=== PATIENT | male | born 1960 | race Caucasian/White ===

== ENCOUNTER 2025-07-15 13:02 | Emergency (ER) | payer OTHER, SELFPAY ==
[2025-07-15 13:16] VITALS: BP 165/93
[2025-07-15 15:13] VITALS: BP 160/93; BMI 28.9
--- NOTE | 2025-07-15 15:23 | ED.GENMED ---
History of Present Illness
<YORDY Carrera - Last Filed: 07/15/25 23:57>
General
Chief Complaint: Musculo-Skeletal Complaint
Source: patient
Exam Limitations: none
Time Seen by Provider: 07/15/25 15:13
History of Present Illness
History of Present Illness:
Patient is a 64-year-old male who presents to the ER for evaluation. Patient reports for the past several months he has had swelling and pain to his left index finger. (He is right-hand dominant). he was seen by his family doctor, nurse
practitioner who thought it might be arthritis. Two separate times throughout the swelling he stuck a pin in it and' popped it.' He does report that it drained pus out of it. He was seen urgent care today for URI symptoms diagnosed bacterial
pneumonia however also had this finger swelling evaluated. He had an x-ray and was called by urgent care to come directly to the ER for possible bone infection. reports the finger was becoming a blackish color and his primary care physician
put him on Keflex week ago which did seem to improve symptoms.
Patient denies any other joint pain rash fever chills no prior history of autoimmune joint disease
Past History
<YORDY Carrera - Last Filed: 07/15/25 23:57>
Past History
ED Past Medical History: GERD
ED Past Surgical History: None
Social History
Tobacco: Non-smoker
Alcohol: Occasional
Personal:
Living: with family
Employment: Employed
Family History
Family History: Negative Early CAD, CAD or Sudden
Phy Exam
<YORDY Carrera - Last Filed: 07/15/25 23:57>
General Physical Exam
General Presentation: no apparent distress
General age: appears stated age
General Skin: warm and dry
General Habitus: normal
General Mental: alert
General Hydration: appears well hydrated
Neurological Exam
Neurological Exam: alert and oriented x3
Musculoskeletal Exam
Musculoskeletal Exam: other (LUE with strong pulses mild swelling to left index finger mild erythema able to flex /extend /good ROM no lymphangitis)
Skin Exam
Skin Exam: normal color and warm/dry
Psychiatric Exam
Psychiatric Exam: normal mood/affect
Course
<YORDY Carrera - Last Filed: 07/15/25 23:57>
Orders/Labs/Results
Orders:
Orders
07/15/25 16:02
IV Insert/Care/Rem.- Treatment PRN
07/15/25 16:13
CRP [C-Reactive Protein] Urgent
Complete Blood Count/With Diff Urgent
Comprehensive Metabolic Panel Urgent
Lactic Acid Urgent
Sed Rate [Erythrocyte Sed Rate] Urgent
07/15/25 17:43
Amoxicillin 875 mg/Clav 125 mg [Augmentin 875 mg/125 mg] 1 tablet PO NOW STA
Abnormal Lab Results
07/15/25
16:13
MPV 10.5 H fL
(7.4-10.4)
Absolute Monos (auto) 1.0 H 10^3/uL
(0.1-0.6)
Monocytes % 11.9 H %
(1.7-9.3)
Carbon Dioxide 31 H mmol/L
(22-30)
C-Reactive Protein 29.80 H mg/L
(0.0-10.00)
07/15/25 16:13
07/15/25 16:13
Vital Signs
Initial and Last Documented VS:
Initial Vital Signs
Temp Pulse Resp BP Pulse Ox
98.3 F 70 20 165/93 96
07/15/25 13:16 07/15/25 13:16 07/15/25 13:16 07/15/25 13:16 07/15/25 13:16
Last Documented Vital Signs
Temp Pulse Resp BP Pulse Ox
98.3 F 53 18 188/91 99
07/15/25 15:14 07/15/25 17:48 07/15/25 15:13 07/15/25 17:48 07/15/25 17:48
Insurance Customer Service Specialist consulted with Physician
Insurance Customer Service Specialist consulted with physician?: Yes
Name of Physician Consulted: Марина
<Boris Parish, DO - Last Filed: 07/15/25 17:46>
Orders/Labs/Results
Orders:
Orders
07/15/25 16:02
IV Insert/Care/Rem.- Treatment PRN
07/15/25 16:13
CRP [C-Reactive Protein] Urgent
Complete Blood Count/With Diff Urgent
Comprehensive Metabolic Panel Urgent
Lactic Acid Urgent
Sed Rate [Erythrocyte Sed Rate] Urgent
07/15/25 17:43
Amoxicillin 875 mg/Clav 125 mg [Augmentin 875 mg/125 mg] 1 tablet PO NOW STA
Abnormal Lab Results
07/15/25
16:13
MPV 10.5 H fL
(7.4-10.4)
Absolute Monos (auto) 1.0 H 10^3/uL
(0.1-0.6)
Monocytes % 11.9 H %
(1.7-9.3)
Carbon Dioxide 31 H mmol/L
(22-30)
C-Reactive Protein 29.80 H mg/L
(0.0-10.00)
07/15/25 16:13
07/15/25 16:13
Vital Signs
Initial and Last Documented VS:
Initial Vital Signs
Temp Pulse Resp BP Pulse Ox
98.3 F 70 20 165/93 96
07/15/25 13:16 07/15/25 13:16 07/15/25 13:16 07/15/25 13:16 07/15/25 13:16
Last Documented Vital Signs
Temp Pulse Resp BP Pulse Ox
98.3 F 53 18 188/91 99
07/15/25 15:14 07/15/25 17:48 07/15/25 15:13 07/15/25 17:48 07/15/25 17:48
<YORDY Carrera - Last Filed: 07/15/25 23:57>
MDM/Problems Addressed
Differential Diagnosis Includes:
Not limited to infection, less likely osteomyelitis gout
MDM/Problems Addressed:
As documented patient is a 64-year-old male who presents with left index finger swelling for the past several months. He has tried to drain this and has gotten some pus out on his own. He denies any fever or chills. Patient was seen by urgent
care earlier today for cough cold URI symptoms and also had this evaluated patient .patient had an x-ray and official report suggested loss of bone density with considerations including osteomyelitis erosive change for inflammatory arthropathy/gout.
Patient was sent here to the ER for evaluation .on Exam patient has mild swelling to the left index finger at the DIP joint very minimally red good range of motion. He has no acute distress and afebrile with a normal white count.
Patient has had symptoms for the past several months, and is afebrile with a normal white count less suspicious for osteomyelitis. Case reviewed with ED physician who evaluated patient. Case reviewed with orthopedic hand specialist on-call
Ritting, he does recommend Augmentin with f/u as outpt next week .
Pt was given doxycycline for' bacterial pneumonia' as per at urgent care prior to arrival however I did review this chest x-ray which was done at 1036 this morning and was negative for pneumonia. I instructed patient to hold off on starting
doxycycline to start Augmentin as recommended by hand specialist
<YORDY Carrera - Last Filed: 07/15/25 23:57>
*Pulse Oximetry
SaO2: 98
Oxygen Mode of Delivery: Room air
Patient hypoxic: no
*Critical Care Note
Total Time (30-74mins, 75-104mins- exclusive of procedures): Not Applicable
Data Reviewed
Review of Other/Old Records Reveals: Other (Outpatient imaging from urgent care reviewed)
<YORDY Carrera - Last Filed: 07/15/25 23:57>
Patient Management
Discussion with other providers: Manager Fire (ortho hand Dr Hernandez )
ED Attending Note
<YORDY Carrera - Last Filed: 07/15/25 23:57>
-
Portions of this chart may have been created with voice recognition software.� Occasional wrong word or��sound alike� substitutions may have occurred due to the inherent limitations of voice recognition software.
<Boris Parish DO - Last Filed: 07/15/25 17:46>
ED Attending Note
Patient seen and examined by attending physician: Yes
ED Attending Note:
I reviewed and agree with history treatment plan by Jolene Glez. My exam revealed 64-year-old male no acute distress mild swelling at distal phalanx left index finger. Doubt osteomyelitis, possible mild cellulitis. Patient will be placed on
Augmentin and follow-up with Dr. Hernandez.
Discharge Plan
Departure
Patient Disposition: Home (Routine Discharge)
Date of Disposition: 07/15/25
Time of Disposition: 17:44
Patient with high blood pressure during this ER visit?: Yes
Condition: Fair
Covid-19: Not Applicable
Discharge Problem:
Cellulitis, Finger infection
Instructions: Cellulitis (skin infection) in adults - ED (DC)
Prescriptions:
New
amoxicillin-pot clavulanate 875-125 mg tablet
1 tab PO BID Qty: 20 0RF
No Action
levothyroxine [Synthroid] 50 MCG tablet
50 mcg PO DAILY
levofloxacin 750 mg tablet
750 mg PO DAILY 7 Days Qty: 7 0RF
Referrals:
Dajuan Mendes MD [Active, Orthopedics]
Gerson Hernandez MD [Active, Orthopedics]
UNKNOWN - PT NOT,INTERVIEWE [Family Provider]
Activity Restrictions/Additional Instructions:
As discussed start Augmentin twice daily for the next 10 days. Please follow-up with hand surgeon as soon as possible .
call Friday morning to make an appointment. Return if any worsening of symptoms of increased pain swelling redness fever chills
Interventions
Interventions:
*Risk Screen - Suicide Last Done: 07/15/25 13:16
*General Assessment Last Done: 07/15/25 13:16
*Neglect/Abuse Screening Last Done: 07/15/25 13:16
*Nursing Disposition Last Done: 07/15/25 17:53
ED-Musculoskeletal Assessment Last Done: 07/15/25 14:44
Discharge Date and Time
Discharge Date/Time: 07/15/25 17:54
Print Language: TAJIK
[2025-07-15 16:41] LABS: Hematocrit 47.9 % (39.0-52.0); Hemoglobin 16.6 g/dL (13.0-18.0); Mean Corp Hgb Conc. 34.7 g/dL (33.0-37.0); Mean Corpuscular Volume 87.4 fL (80.0-94.0); Nucleated Red Blood Cells % 0 % (-); Platelet Count 187 10^3/uL (130-400); Red Cell Dist. Width 12.5 % (11.5-14.5)
[2025-07-15 16:55] LABS: ALT (SGPT) 25 U/L (0-50); AST (SGOT) 26 U/L (17-59); Albumin 4.5 g/dl (3.5-5.0); Alkaline Phosphatase 45 U/L (38-126); Blood Urea Nitrogen 17 mg/dl (9-20); Calcium 10.2 mg/dl (8.4-10.2); Carbon Dioxide 31 mmol/L (22-30); Chloride 102 mmol/L (98-107); Estimated Creatinine Clearance 72 ml/min; Glucose 79 mg/dl (70-99); Potassium 4.6 mmol/L (3.5-5.1); Sodium 138 mmol/L (135-145); Total Protein 7.5 g/dl (6.3-8.2); eGFR > 60.00
[2025-07-15 16:59] LABS: C-Reactive Protein 29.80 mg/L (0.0-10.00)
[2025-07-15 17:48] VITALS: BP 188/91
[2025-07-15] MEDS: AUGMENTIN 875 MG/125 MG 1 TABLET PO (17:50)
== END 2025-07-15 17:54 | disposition home or self-care (01) ==
LOC: EMR 13:02
PROVIDERS: Nurse Practitioner; EMERGENCY PHYSICIAN Emergency Medicine
DX: L03.012 Cellulitis of left finger (principal); K21.9 Gastro-esophageal reflux disease without esophagitis
CPT/HCPCS: 99283; 80053; 83605; 85025; 85652; 86140

== ENCOUNTER 2025-07-27 07:14 | Inpatient (IN) | payer OTHER, SELFPAY ==
--- NOTE | 2025-07-26 12:01 | CM ---
Cm spoke with patient via lives telephone. Patient is aware that he may need home IV antibiotics. He stated that he is willing to learn. Patient further stated that he is agreeable to [facility]. CM to sent referral via [facility] for a preliminary
referral.
PLAN: [facility] for home IV antibiotics.
[2025-07-27] VITALS (16 sets, daily range): BP systolic 100–156; BP diastolic 58–96; BMI 29.7
[2025-07-27] MEDS: CELEBREX 200 MG PO (07:50)
[2025-07-27] MEDS: TYLENOL 1000 MG PO (07:53)
[2025-07-27] MEDS: NORMOSOL-R/PLASMALYTE-A 1000 IV (07:55)
[2025-07-27 11:02] LABS: Blood Urea Nitrogen 15 mg/dl (9-20); Calcium 9.0 mg/dl (8.4-10.2); Carbon Dioxide 25 mmol/L (22-30); Chloride 108 mmol/L (98-107); Estimated Creatinine Clearance 90 ml/min; Glucose 97 mg/dl (70-99); Potassium 4.7 mmol/L (3.5-5.1); Sodium 137 mmol/L (135-145); eGFR > 60.00
--- NOTE | 2025-07-27 12:19 | CON.ID ---
Consultation
-
Date/Time Consultation Requested: 07/27/2025 0817
Date/Time Consultation Performed: 07/27/2025 1221
Requesting Provider: Dr. Hernandez
Performing Provider: Dr. Mckeon
Reason for Consultation: Left index finger osteomyelitis
Chief Complaint / Past History
History of Present Illness
Clifford Mensah is a 64-year-old man being evaluated at the request of Dr. Hernandez regarding left index finger osteomyelitis. History is obtained from chart review, along with patient interview. Additional history was obtained from patient's
who is at the bedside.
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
He was in his usual state of health until the beginning of March when he had some left distal index finger swelling. According to a timeline provided to me, on April 08 he saw a nurse practitioner and was diagnosed with arthritis. On or around April 24
an area of swelling developed which he reportedly 'popped' with recovery of purulence. An additional area of swelling developed in sometime in May, and he reports he again 'popped' the area, again with recovery of purulence. Later, he developed
atrial fibrillation, and developed cold-like symptoms with congestion. He was placed on antibiotics around July 11, and it is noted that he had 'darkening of his finger'. On July 15 he went to an urgent care where x-rays revealed an infection
in both his lung and finger. He was given cough medicine and started on doxycycline. He also was started on Augmentin for 10 days, but he developed a rash to the Augmentin and he stopped it on day 7. On 07/[address] Hernandez and was ordered an
MRI which was performed on 07/21, which revealed findings consistent with osteomyelitis. Today, he was taken to the OR for debridement and cultures. He reports he has been off of antibiotics (Augmentin) for the past 4 days.
He denies any trauma to the finger. He is not a fisherman. He has no pets. He does not have any aquariums and has no significant water exposure. He works as a welder production line combination.
Past History
Additional Past Medical History:
Hypothyroidism
Hx prostate CA
Hx thymoma
Additional Past Surgical History:
Prostatectomy
thymectomy
Allergy History:
amoxicillin (From Augmentin) Allergy (Verified 07/26/25 09:50)
Hives
latex Allergy (Verified 07/26/25 09:50)
Blistering
Medications Reviewed: Yes
Current Antibiotics:
None
Social History
Tobacco: Non-Smoker
Alcohol: Occasional
Drug: None
Personal:
Living: With Family
Employment: Employed
Family History
Family History: Not Pertinent
Review of Systems
Vital Signs
Temp Pulse Resp BP Pulse Ox
97.3 F 60 12 143/79 100
07/27/25 09:41 07/27/25 12:15 07/27/25 12:15 07/27/25 12:00 07/27/25 12:15
Physical Exam
Physical Exam
Constitutional: No Acute Distress, Comfortable and Non-toxic
Eyes: No Conjunctival Hemorrhage and Sclera Anicteric
Oral: No Thrush and No Ulcers
Cardiovascular: Regular Rate and S1/S2; Negative S3/S4
Pulmonary: Clear; Negative Wheezes, Rales or Rhonchi
Gastrointestinal: Soft, Non Tender, Non Distended and Normal Bowel Sounds
Wound: Other (left index finger dressed.)
Neurological: Awake and Alert
Psychological: Calm
Lab / Diagnostic Study Results
07/27/25 09:31
Microbiology Results
Micro:
07/27/25 08:47 Tissue Culture - Pending
Finger - Left Gram Stain - Preliminary
07/27/25 08:47 Wound Culture - Pending
Finger - Left Gram Stain - Preliminary
07/27/25 08:47 Anaerobic Culture - Pending
Finger - Left
Imaging:
07/21/2025 MRI left hand with and without contrast: there is extensive soft tissue edema and enhancement throughout the distal second digit consistent with cellulitis. There are small foci of susceptibility present within the distal second digit
soft tissues, at the distal volar tip and at the dorsal skin surface at the level of the DIP which may reflect small foreign bodies. No drainable soft tissue fluid collections or abscesses.
Under the second digit soft tissue changes there is marrow edema with confluent T1 hypointense marrow replacement involving the second distal phalanx and distal aspect of the second proximal phalanx. Large effusion of the second distal
interphalangeal joint consistent with septic arthritis. Please see full dictation for additional detail.
Assessment / Plan
Left hand second digit osteomyelitis of the distal and middle phalanges.
- S/p debridement, biopsy and culture
Hypothyroidism
Hx prostate CA
Hx thymoma
Recommendations:
Patient is status post debridement of the left second digit. Samples for pathology and culture have been sent.
Will start empiric antibiotics with ertapenem. PICC line has been ordered.
Await further culture data to guide subsequent antimicrobial selection and potential de-escalation.
Check ESR and CRP in AM.
Local care to the area.
[2025-07-27] MEDS: NSS 1000 IV ×2 (13:43→22:25)
[2025-07-27] MEDS: COLACE PO (13:43)
[2025-07-27] MEDS: INVANZ 60 MG IV (17:00)
[2025-07-27] MEDS: ROXICODONE 5 MG PO (17:36)
[2025-07-27] MEDS: COLACE 100 MG PO (19:57)
[2025-07-28 04:07] VITALS: BP 141/74
[2025-07-28] MEDS: SYNTHROID 75 MCG PO (06:15)
[2025-07-28] MEDS: NSS 1000 IV (06:15)
[2025-07-28 06:46] LABS: C-Reactive Protein 11.20 mg/L (0.0-10.00)
[2025-07-28 07:40] VITALS: BP 156/88
--- NOTE | 2025-07-28 07:45 | W.PN.ORTHO ---
Today's Communication / Plan
-
Patient's left index finger has no pain and neurovascularly appears intact with splint in place. He is currently receiving IV fluids which I will discontinue. Presently he is receiving Ertapenem via his PICC line. Cultures obviously still are
pending. He and his are chomping at the bit to get out of here and go home. Orthopedically the finger appears stable today. Mr. Mensah and his relay they have plans to go to [facility] next week so they are hoping to get home today. I
understand that they would like to try to get out of the hospital as soon as possible but it is important that infectious disease has culture results as to treat his finger infection appropriately
Assessment
.
Distal Motor Intact: Yes
Dressing:
Clean, dry and intact.
Plan
.
Surgery / Date: L index finger I & D 07/27 Ritting
DVT Prophylaxis: Aspirin
Activity:
Out of bed.
PT/OT
Discharge Plan: Home
Subjective
.
.:
Patient resting comfortably.
Vital Signs and Labs
.
Vital Signs and Labs:
Lab Results
07/27/25 09:31
Temp Pulse Resp BP Pulse Ox
97.1 F 56 15 141/74 97
07/28/25 04:07 07/28/25 04:07 07/28/25 04:07 07/28/25 04:07 07/28/25 04:07
--- NOTE | 2025-07-28 08:01 | CM ---
CM reviewed medical records. Plan for IV antibiotics. CM sent updated information to [facility].
PLAN: Home with IV antibiotics.
[2025-07-28] MEDS: COLACE 100 MG PO ×2 (09:14→19:51)
[2025-07-28] MEDS: ASPIRIN 325 MG PO (09:14)
--- NOTE | 2025-07-28 10:26 | CM ---
Addendum entered by Johanne Carrera RN 07/28/25 15:12:
CM was updated by Sherice at [facility] that they are able to accept patient. They are requesting documentation from physician stating that patient's dressing changes can occur immediately before his departure from the [place] and on
return from [facility]. Dr. Mckeon will provide script to assist.
CM updated patient and . was grateful and appeared happy that issue was resolved. She stated that she would be agreeable to the patient staying tomorrow for his dose and then [facility] will service patient on 07/30.
CM sent referral information to Sherice at [facility] who is currently awaiting insurance verification and scheduling. CM will continue to follow as needed.
Addendum entered by Johanne Carrera RN 07/28/25 13:27:
CM spoke with patient and in room. CM updated that [facility] will have to evaluate patient as a HIGH RISK case as patient plans to travel internationally. CM spoke with PHIT, Sherice admission RN, who stated that they are not comfortable with
patient's travel overseas, but will escalate it to management for a final decision.
Patient's became increasingly update stating that she was going to 'kill' the patient and she said she was going to go home and shoot herself. CM provide deescalation techniques and attempted to redirect the conversation.
Patient stated that he would cancel his trip if needed. CM will await call back from [facility] regarding acceptance of care.
Addendum entered by Johanne Carrera RN 07/28/25 10:36:
Patient and did advised this CM that they plan to sign out AMA on Friday if they are not discharged. feels that patient should be discharged today. CM explained at length regarding discharge planning process involved with IV antibiotics.
Patient's was agitated and was frustrated that she was not told about this process prior. further stated that Dr. Hernandez advised they that patient would be discharged today. CM reinforced barriers to discharge.
had further concerns about insurance coverage or IV antibiotics. She stated that she anticipated the IV antibiotics would not be covered and she wants this CM to contact [facility] about coverage. CM advised that when this CM has the
prescription then the patient obligation would be clarified by [facility].
Original Note:
CM met with patient and in room. Patient's has mulitple complaints about the discharge planning process including what she believed to be the lack of information and inconsistent messaging from team. Patient's further was upset that
she was unable to stay with patient in PACU while they waited for a room. stated that she had to wait 5 hours in the waiting room and was not able to stay with . CM escalated patient's concerns to Cullen Loo and Rut Ward.
Patient's stated that they plan to leave for [facility] on 08/05 and they do not plan to cancel their trip. CM advised that medication will need to be brought with them and further they will not have nursing support while in [facility]. CM further
advised that if there are complications with the PICC line then he would have to present to an Emergency Room in [facility] for care. Patient stated he understood.
ANA spoke with Richelle at [facility]. Richelle will updated the nursing team with plan for patient to travel, but patient may miss a lab draw and dressing change. Richelle will get back to me regarding nursing acceptance for patient to travel.
ANA was further updated by Dr. Mckeon with his plan for IV antibiotics and script will be forthcoming.
--- NOTE | 2025-07-28 10:44 | W.PN.ID1 ---
Date of Service
Date of Service: July 28, 2025
Today's Communication
Continue with ertapenem.
Assessment / Plan
Left hand second digit osteomyelitis of the distal and middle phalanges.
- S/p debridement, biopsy and culture
Hypothyroidism
Hx prostate CA
Hx thymoma
Recommendations:
Patient is status post debridement of the left second digit.
Cultures pending. Reviewed personally with micro department earlier today. No growth to date on either plates or thio. Cultures will be finalized either tomorrow or the next day. Information reviewed with patient and .
Based upon prior antibiotic coverage, and anticipating potentially negative cultures because of prior antibiotic use, have initiated ertapenem to cover staph and strep species.
Use of empiric antibiotics in the context of negative cultures reviewed in detail with patient and .
Continue empiric ertapenem for now which can be adjusted should culture results turn positive, although explained that if there is a change that is required, it may take several days especially if necessary over a weekend.
In anticipation of discharge on ertapenem, I have completed an IV antibiotic sheet to be given to case management and a home infusion company. I have reviewed potential side effects of antibiotic therapy (ertapenem) with the patient and .
Additionally, I have learned that the patient and plan on travel to [facility] on 08/05/2025. I have discussed risks of traveling with a PICC line and antibiotics with them. They understand that the safest thing would be to not go on this trip, but
risks of travel with infection and PICC line have been reviewed. These include blood clot, line infection, potential sepsis, or even . They understand these risks and accept them.
ESR and CRP reviewed, and appear only minimally elevated which is encouraging.
Continue with local care to the area.
Local care to the area.
Chief Complaint
-: Other (Left index finger osteomyelitis)
Subjective / Review of Systems
Review of Systems: No Fever and No Chills
Vital Signs / Physical Exam
Vital Signs
Vital Signs
Temp Pulse Resp BP Pulse Ox
97.9 F 62 16 156/88 98
07/28/25 07:40 07/28/25 07:40 07/28/25 07:40 07/28/25 07:40 07/28/25 07:40
Physical Exam
Constitutional: No Acute Distress, Comfortable and Non-toxic
Eyes: Sclera Anicteric
Cardiovascular: S1/S2; Negative S3/S4
Pulmonary: Non Labored
Gastrointestinal: Non Distended
Musculoskeletal: Other (Left index finger wrapped. No erythema extending up hand. No strikethrough on dressing.)
Neurological: Awake and Alert
Lines: PICC (Right upper extremity; exit site without erythema or tenderness.)
Objective Data
Lab Data
Lab Results
07/27/25 09:31
ESR 12 mm/hour (0-20) 07/28/25 05:33
Estimated Creat Clear 90 ml/min 07/27/25 09:31
C-Reactive Protein 11.20 mg/L (0.0-10.00) H 07/28/25 05:33
Most recent labs reviewed.
Micro Results:
07/27/25 08:47 Tissue Culture - Preliminary
Finger - Left No Growth After 18-24 Hours
Gram Stain - Preliminary
07/27/25 08:47 Anaerobic Culture - Preliminary
Finger - Left Culture pending. Anaerobic cultures are examined after 3
days incubation. Additional information to follow.
07/27/25 08:47 Wound Culture - Preliminary
Finger - Left No growth
Gram Stain - Preliminary
Imaging:
07/21/2025 MRI left hand with and without contrast: there is extensive soft tissue edema and enhancement throughout the distal second digit consistent with cellulitis. There are small foci of susceptibility present within the distal second digit
soft tissues, at the distal volar tip and at the dorsal skin surface at the level of the DIP which may reflect small foreign bodies. No drainable soft tissue fluid collections or abscesses.
Under the second digit soft tissue changes there is marrow edema with confluent T1 hypointense marrow replacement involving the second distal phalanx and distal aspect of the second proximal phalanx. Large effusion of the second distal
interphalangeal joint consistent with septic arthritis. Please see full dictation for additional detail.
Care Review
Plan reviewed with: Physician (Ortho) and Other (Case Management)
.

Total time spent today was 66 minutes, which includes preparation for the visit, including review of pre-visit forms and results, patient interview and examination, reviewing pertinent studies, including laboratory results, microbiology results,
radiology studies, hospital records, specialist consultation, along with patient/caregiver counseling, documentation of clinical information and coordination of care with other healthcare professionals.
[2025-07-28] MEDS: INVANZ 60 MG IV (14:00)
[2025-07-28 15:50] VITALS: BP 163/89
[2025-07-28 23:00] VITALS: BP 148/78
[2025-07-29] MEDS: SYNTHROID 75 MCG PO (05:36)
[2025-07-29 07:50] VITALS: BP 150/80
--- NOTE | 2025-07-29 08:30 | W.PN.ORTHO ---
Today's Communication / Plan
-
64-year-old male male status post left index finger debridement irrigation for osteomyelitis doing well today. He is tentative for discharge today with home antibiotics tomorrow. He is currently well-controlled in terms of pain without opioid
medication. Plan for discharge when agreed upon by infectious disease as indicated per last note. Discharge information placed
Assessment
.
Distal Motor Intact: Yes
Dressing:
Clean, dry and intact.
Plan
.
Surgery / Date: L index finger I & D 07/27 Ritting
Activity:
Out of bed.
PT/OT
Subjective
.
.:
Patient resting comfortably.
Vital Signs and Labs
.
Vital Signs and Labs:
Lab Results
07/27/25 09:31
Temp Pulse Resp BP Pulse Ox
98.5 F 57 16 148/78 98
07/28/25 23:00 07/28/25 23:00 07/28/25 23:00 07/28/25 23:00 07/28/25 23:00
--- NOTE | 2025-07-29 08:34 | W.DCSUMMARY ---
Discharge Summary
Discharge Data
Date of Admission: 07/27/25
Date of Discharge: 07/29/25
-
Pending Results: No
Hospital Course
The patient underwent left index finger DIP joint septic arthritis and index finger osteomyelitis debridement irrigation on [address] Hernandez without complications. The patient recovered in the PACU and was transferred to the floor.
The postoperative course remained uncomplicated. A PICC line was placed and patient was placed on broad spectrum antibiotics with ertapenem. Cultures were negative no growth at 2 days from surgery. Infectious disease was consulted and following
the patient with outpatient recommendation of PICC line x 6 weeks with ertapenem. At the time of discharge, the patient was noted to be tolerating a regular diet, ambulating with adherence to weightbearing and activity restrictions, able to
accomplish activities of daily living at baseline level, and had pain controlled on oral medications. Prior to discharge, the patient was provided with appropriate discharge/follow-up/return instructions, and discharge medications
Discharge Plan
-
Patient Disposition: Home (Routine Discharge)
Discharge Diagnosis/Procedures: Left index finger I&D
Diet: As tolerated
Activity: No restrictions
Driving Restrictions: No driving for 24 hours
Bathing Restrictions: OK to Shower
Activity Restrictions/Additional Instructions:
Leave splint and dressing in place
When showering put plastic bag over the finger to keep dressing dry
Ice and elevate frequently
Referrals:
Gerson Hernandez MD [Active, Orthopedics]
Referral Note: Please contact the office at [phone] to confirm follow-up appointment if needed
UNKNOWN - PT NOT,INTERVIEWE [Family Provider]
Prescriptions:
Continued
levothyroxine 75 mcg tablet
75 mcg PO DAILY
tadalafil [Cialis] 5 mg Tablet
5 mg PO DAILY
aspirin 325 mg Tablet
325 mg PO DAILY
omega-3 fatty acids Capsule
1 cap PO DAILY
Magnesium + Vit E
1 tab PO DAILY
Spirulina/Chorella Blend
1 tab PO DAILY
Joint Health
1 tab PO DAILY
calcium
1 tab PO DAILY
Advanced Antioxidant
1 tab PO DAILY
digestive enzymes Capsule
1 cap PO DAILY
Vitamin C
1 tab PO DAILY
Discharge Orders:
Discharge Patient (As Directed); Ordered 07/29/25
Ordered By: Paramjit Bagley
Discharge Date and Time
Print Language: SPANISH
[2025-07-29] MEDS: ASPIRIN 325 MG PO (08:41)
[2025-07-29] MEDS: COLACE 100 MG PO (08:41)
--- NOTE | 2025-07-29 09:07 | W.PN.ID1 ---
Date of Service
Date of Service: July 29, 2025
Today's Communication
Continue antibiotics.
Assessment / Plan
Left hand second digit osteomyelitis of the distal and middle phalanges.
- S/p debridement, biopsy and culture
Hypothyroidism
Hx prostate CA
Hx thymoma
Recommendations:
Patient is status post debridement of the left second digit.
Cultures pending. Reviewed personally with micro department earlier today. No growth to date on either plates or thio. Cultures remain pending. Information reviewed with patient and .
Based upon prior antibiotic coverage, and anticipating potentially negative cultures because of prior antibiotic use, have initiated ertapenem to cover staph and strep species.
Use of empiric antibiotics in the context of negative cultures reviewed in detail with patient and .
Continue empiric ertapenem for now which can be adjusted should culture results turn positive, although explained that if there is a change that is required, it may take several days especially if necessary over a weekend.
Continue with local care to the finger area.
Will follow-up in the office in 3 to 4 weeks.
����������������������������������������������������������
Chief Complaint
-: Other (Left index finger osteomyelitis)
Subjective / Review of Systems
Review of Systems: No Fever and No Chills
Vital Signs / Physical Exam
Vital Signs
Vital Signs
Temp Pulse Resp BP Pulse Ox
98.5 F 57 16 148/78 98
07/28/25 23:00 07/28/25 23:00 07/28/25 23:00 07/28/25 23:00 07/28/25 23:00
Physical Exam
Constitutional: No Acute Distress, Comfortable and Non-toxic
Eyes: Sclera Anicteric
Cardiovascular: S1/S2; Negative S3/S4
Pulmonary: Non Labored
Gastrointestinal: Non Distended
Musculoskeletal: Other (left index finger ressed. No erythema extending up hand. No palmar swelling.)
Neurological: Awake and Alert
Lines: PICC (Right upper extremity; exit site without erythema or tenderness.)
Objective Data
Lab Data
Lab Results
07/27/25 09:31
ESR 12 mm/hour (0-20) 07/28/25 05:33
Estimated Creat Clear 90 ml/min 07/27/25 09:31
C-Reactive Protein 11.20 mg/L (0.0-10.00) H 07/28/25 05:33
Most recent labs reviewed.
Micro Results:
07/27/25 08:47 Tissue Culture - Preliminary
Finger - Left No Growth After 18-24 Hours
Gram Stain - Preliminary
07/27/25 08:47 Anaerobic Culture - Preliminary
Finger - Left Culture pending. Anaerobic cultures are examined after 3
days incubation. Additional information to follow.
07/27/25 08:47 Wound Culture - Preliminary
Finger - Left No growth
Gram Stain - Preliminary
Imaging:
07/21/2025 MRI left hand with and without contrast: there is extensive soft tissue edema and enhancement throughout the distal second digit consistent with cellulitis. There are small foci of susceptibility present within the distal second digit
soft tissues, at the distal volar tip and at the dorsal skin surface at the level of the DIP which may reflect small foreign bodies. No drainable soft tissue fluid collections or abscesses.
Under the second digit soft tissue changes there is marrow edema with confluent T1 hypointense marrow replacement involving the second distal phalanx and distal aspect of the second proximal phalanx. Large effusion of the second distal
interphalangeal joint consistent with septic arthritis. Please see full dictation for additional detail.
--- NOTE | 2025-07-29 10:13 | CM ---
Cm confirmed that [facility] has scheduled patient for 07/30 start of care. CM confirmed that [facility] spoke with patient and regarding financial obligation. Patient and are looking forward to discharge.
Patient's expressed relief that he is being discharged and they are able to participate in planned travel. Patient is also looking forward to discharge and expressed appreciation for this CM's efforts.
PLAN: [facility]
[2025-07-29 10:42] VITALS: BP 171/95
[2025-07-29] MEDS: INVANZ 60 MG IV (11:38)
== END 2025-07-29 12:44 | disposition home or self-care (01) | DRG 516 ==
LOC: 2 SOUTH 07:14
PROVIDERS: Radiology Neuroradiology; ADMITTING PHYSICIAN Orthopaedic Surgery Hand Surgery; CONSULT PHYSICIAN Internal Medicine Infectious Disease
PROC: 0PBV0ZZ Excision of Left Finger Phalanx, Open Approach (ICD-10-PCS; 2025-07-27)
PROC: 02HV33Z Insertion of Infusion Device into Superior Vena Cava, Percutaneous Approach (ICD-10-PCS; 2025-07-27)
DX: M00.9 Pyogenic arthritis, unspecified (principal); M86.9 Osteomyelitis, unspecified; E03.9 Hypothyroidism, unspecified; Z85.46 Personal history of malignant neoplasm of prostate; Z91.040 Latex allergy status
CPT/HCPCS: 71045; 80048; 85652; 86140; 87070; 87075; 87176; 87205; 93005; J1335